=== PATIENT | male | born 1990 | race Caucasian/White ===

== ENCOUNTER 2025-02-15 12:57 | Emergency (ER) | payer MEDICAID, SELFPAY ==
[2025-02-15 13:02] VITALS: BP 185/101; PULSE 100; RESP 18; TEMP 36.7; O2SAT 99; BMI 29.3
--- NOTE | 2025-02-15 13:05 | ED_ITS ---
HPI - General Adult General Chief complaint: Wound/Laceration Stated complaint: Spider bite? L leg? Time Seen by Provider: 02/15/25 14:50 Source: patient and RN notes reviewed Mode of arrival: ambulatory Limitations: no limitations History of Present Illness ED Provider: EMMANUEL Leyva HPI narrative: 34-year-old male without medical history presents to the ED due to pain over an area of his left hip. Patient states he noticed a small area of irritation on his left hip and initially thought it was an ingrown hair. Patient states the area has gotten bigger, and pain has increased over the last 3 days. 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 Patient denies any drainage from the area, fever, chills, chest pain, shortness of breath MD complaint: Abscess to left hip Related Data Previous Rx's ?Medication ?Instructions ?Recorded cephalexin 500 mg capsule 500 mg PO BID 7 days #14 cap s 02/15/25 doxycycline hyclate 100 mg tablet 100 mg PO BID 7 days #14 tabs 02/15/25 Allergies Allergy/AdvReac Type Severity Reaction Status Date / Time No Known Allergies Allergy Verified 02/15/25 13:06 Review of Systems 2 Review of Systems: Yes all other systems are reviewed and are negative PMFSH Past Medical History Attestation statement: The following information was validated with the patient. Source: old records reviewed and nursing notes reviewed Social History Social History Smoked in Last 30 Days: No Use of substances other than those prescribed or required for medical reasons: No Advance Directives: No Advance Directives Information Provided: Yes Do you have a plan to hurt others: No Plan Physical Exam ED Vital Signs: Vital Signs - 24 hr 02/15/25 13:02 02/15/25 14:00 02/15/25 15:44 Temperature 98.1 F 97.9 F Pulse Rate 100 98 87 Respiratory Rate 18 18 18 Blood Pressure 185/101 H 131/93 H 129/79 Pulse Oximetry 99 97 97 Oxygen Delivery Method Room Air Room Air Room Air 02/15/25 16:18 Temperature 97.9 F Pulse Rate 87 Respiratory Rate 18 Blood Pressure 129/79 Pulse Oximetry 97 Oxygen Delivery Method Room Air BMI result Body Mass Index 29.3 GENERAL APPEARANCE: ?AxOx4, generally well-appearing, no acute distress. HEENT: ?NC, AT. MMM. EOMI, clear conjunctiva, oropharynx clear. NECK: ?Supple without lymphadenopathy.? No stiffness or restricted ROM. HEART:? Normal rate and regular rhythm, normal S1/S2, no m/r/g LUNGS:? CTAB, moving air well. No crackles or wheezes are heard. ABDOMEN: ?Soft, nontender, nondistended BACK: No CVAT, no obvious deformity. EXTREMITIES: ?Without cyanosis, clubbing or edema. NEUROLOGICAL: ?Grossly nonfocal. Alert and oriented, moving all 4 extremities. Observed to ambulate with normal gait. Skin: ?Warm and dry without any rash. Approximately 3 cm x 2 cm area of erythema to the left hip, this area is indurated, without drainage. Course Course Course Narrative: RME: 34 year male presents to ED for left hip pain with redness warmth after being bit in by possibly spider bite. Patient states he works in the [employer] and felt something bite him and 2 days later started having chills, subjective fever, and hip pain. On exam positive for fluctuant mass on left hip that is tender. Medications Administered Discontinued Medications Generic Name Dose Route Start Last Admin Trade Name Baltazarq PRN Reason Stop Dose Admin Doxycycline Monohydrate 200 mg 02/15/25 15:48 02/15/25 15:58 Doxycycline Monohydrate 100 Mg Capsule PO 02/15/25 15:49 200 mg ONCE ONE Administration Medical Decision Making Medical Decision Making MDM Narrative: 34-year-old male without medical history presents to the ED due to pain over an area of his left hip. Patient states he noticed a small area of irritation on his left hip and initially thought it was an ingrown hair. Patient states the area has gotten bigger, and pain has increased over the last 3 days. 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 Patient denies any drainage from the area, fever, chills, chest pain, shortness of breath VS on initial observation-BP 185/101, pulse rate of 100, respiratory rate of 18, afebrile with oral temp of 98.1?, O2 saturation 99% on room air. On re- examination BP has improved to 131/93, pulse rate of 98, respiratory rate of 18, afebrile with oral temp of 97.9?, O2 saturation 97% on room air. On physical exam there is an approximately 3 cm x 2 cm area of erythematous induration with questionable puncture rebolledo, and very faint possible bull's-eye pattern. The area has slight warmth to it, without drainage. Labs without leukocytosis/leukopenia, no evidence of anemia, ALT mildly elevated at 42, no electrolyte abnormalities. 34-year-old patient presents with painful area over the left hip, that has been getting larger, with warmth. 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 On physical exam there is an area that looks to be puncture rebolledo, with the patient working in a heavily wooded area, I am more concerned for tick- borne illnesses. Tick panel was obtained. Due to suspicion of possible tick bite, patient is being medicated with 200 mg doxycycline. Patient will be discharged with 7 day course of Keflex and doxycycline for coverage. I counseled patient that he will be called if his tick panel is positive and doxycycline we will be extended if so. I counseled patient to apply warm compresses to the area 2-3 times per day to encourage drainage if the area we will open up. Patient does not have a primary care doctor, so I counseled patient to return to the ED if he has any concerns, or if the area starts to drain, get bigger, or if he develops fevers. Patient feels well enough to go home for self-care, and is in agreement with the plan. Differential Diagnosis Differential Diagnoses: The differential diagnosis associated with the presentation includes Spider bite Cellulitis Tick bite Abscess Admission/Observation Consideration of admission/observation: Escalation of care including admission/observation considered Lab Data MDM Lab Attestation statement: I reviewed the patient's lab results. 02/15/25 14:55 02/15/25 14:55 Labs: Lab Results 02/15/25 Range/Units 14:55 WBC 9.3 (4.8-10.8) X10*3/uL RBC 5.50 (4.60-5.80) X10*6/uL Hgb 16.0 (14.0-18.0) g/dl Hct 46.7 (42.0-52.0) % MCV 84.9 (80.0-98.0) fL MCH 29.1 (27.0-33.0) pg MCHC 34.3 (31.0-36.0) g/dl RDW 12.3 (11.0-16.0) % Plt Count 331 (160-400) X10*3/uL MPV 10.0 (9.4-12.4) fL Immature Gran % (Auto) 0.3 (0.0-0.4) % Neut % (Auto) 68.7 (45-73) % Lymph % (Auto) 21.8 (20-40) % [place] % (Auto) 7.2 (2-11) % Eos % (Auto) 1.5 (0-4) % Baso % (Auto) 0.5 (0-2) % Lymph # (Auto) 2.0 (1.2-4.9) X10*3/uL [place] # (Auto) 0.7 (0.1-1.2) X10*3/uL Eos # (Auto) 0.1 (0.0-0.4) X10*3/uL Baso # (Auto) 0.1 (0.0-0.2) X10*3/uL Abs Immat Gran (auto) 0.03 (0.00-0.03) X10*3/uL Absolute Neuts (auto) 6.4 (2.0-8.3) x10*3/uL Absolute Nucleated RBC 0.000 (0.0-0.012) X10*3/uL Nucleated RBC % (auto) 0.0 (0.0-0.2) /100WBC Sodium 142 (135-145) mmol/L Potassium 3.6 (3.3-5.1) mmol/L Chloride 107 (96-108) mmol/L Carbon Dioxide 25 (22-29) mmol/L Anion Gap 14 (12-20) BUN 11 (9-16) mg/dL Creatinine 0.89 (0.5-1.4) mg/dL Estim Creat Clear Calc 137.7 Estimated GFR > 60 Random Glucose 112 (60-115) mg/dL Lactic Acid 1.4 (0.5-2.0) mmol/L Calcium 9.5 (8.4-10.2) mg/dL Total Bilirubin 0.6 (0.0-1.0) mg/dL AST 28 (5-37) U/L ALT 42 H (0-40) U/L Alkaline Phosphatase 86 (39-117) U/L Total Protein 8.4 H (6.5-8.0) g/dL Albumin 5.0 (3.5-5.0) g/dL External Record Review External record reviewed: Inpatient record, Office record and Outpatient record Chronic Conditions Patient?s care impacted by: Other (No known medical history) Discharge Plan Discharge Clinical Impression: Cellulitis Patient Disposition: Home, Self-Care Instructions: Cellulitis (ED), Warm Compress or Soak (ED) Additional Instructions: You were evaluated in the ED due to area of irritation over your left hip. There questionable puncture rebolledo over the area, with a questionable pattern of redness considerable for possible tick bite. Your blood work was reassuring today as you did not have a significant elevation or decrease in your white blood cell count indicative of infection. You were given a dose of 200 mg of doxycycline for bacterial coverage for possible tick bite. I added on a tick panel to your lab work however this will take a few days for it to results back. If so, her doxycycline will be extended. Doxycycline is a treatment for tick- borne illnesses so it will not change treatment. You are being prescribed a 7 day course of Keflex and doxycycline which are antibiotics for bacterial coverage. Please make sure you complete the entire course of medication even if your symptoms improve. Please use warm compresses 2-3 times per day over the area for 10-20 minutes at a time to encourage drainage should the area need to open. For pain management, you can take 500 mg of Tylenol and 400 mg of ibuprofen every 6 hours. Please watch for signs of the area getting larger, if the area is getting warmer, or if you start to experience pus-like drainage from the area. We are awaiting results from your tick panel, if positive we will call you and your course of doxycycline will be extended for coverage. If you do not receive a call from us the testing was negative and you do not need to be concerned. Is return to the ED if you experience fevers over 100.4?, worsening pain over the area, if the area of redness gets larger, if there is pus-like drainage from the area, or any new/worsening/concerning symptoms. Prescriptions: New cephalexin 500 mg capsule 500 mg PO BID 7 Days Qty: 14 0RF doxycycline hyclate 100 mg tablet 100 mg PO BID 7 Days Qty: 14 0RF Stand Alone Forms: Work/School Release Interventions: ED Discharge Assessment Last Done: 02/15/25 16:18 Discharge Date/Time: 02/15/25 16:35 Print Language: British
[2025-02-15 14:00] VITALS: BP 131/93; PULSE 98; RESP 18; TEMP 36.6; O2SAT 97
--- OUTSIDE RECORDS SUMMARY | 2025-02-15 14:08 | XMS_ITS | Clinical Summary ---
Author Organization [employer] Address [address] [place] [address] Care Team Providers Care Distribution Accounting Clerk Name Role Phone Unavailable Primary Care Provider Unavailabl e Social History Tobacco Use Types Packs/Day Years Used Date Smoking Tobacco: Never Assessed Sex and Gender Information Value Date Recorded Sex Assigned at Male 09/29/2024 11:37 AM EDT Legal Sex Male 11:36 AM EDT Gender Identity Male 09/29/2024 11:37 AM EDT Sexual Orientation Not on file Plan of Treatment Health Maintenance Due Date Last Done Comments Depression Screening 1990 HIV Screening 1990 Lipid Panel 1990 SDOH Screening 1990 Disability Screening 1990 Alcohol/Substance Use Screening 2002 Tobacco Screening 2002 Family Planning (PISQ) 2005 HPV Vaccines (1 - Male 3-dos e series) 2005 Hepatitis C Screening 2008 DTaP/Tdap/Td Vaccines (1 - Tdap) 2009 Hepatitis B Vaccines (1 of 3 - 19+ 3-dose series) 2009 COVID-19 Vaccine (3 - 2024-2 6 season) 2024 08/18/2020, 07/21/2020 Influenza Vaccine (#1) 2024 Zoster Vaccines (1 of 2) 2040 RSV Patients and Patients Aged 60 years or older (1 - 1-dose 75+ series) 2065 HIB Vaccines Aged Out No longer eligi ble based on patient's age to complete this topic Hepatitis A Vaccines Aged Out No long er eligible based on patient's age to complete this topic IPV Vaccines Aged Out No longer eligi ble based on patient's age to complete this topic Meningococcal B Vaccine Aged Out No l onger eligible based on patient's age to complete this topic Meningococcal Vaccine Aged Out No jose martin justina eligible based on patient's age to complete this topic Pneumococcal Vaccine: Pediatrics (0 to 5 Years) and At-Risk Patients (6 to 49) Years Aged Out No longer eligible b ased on patient's age to complete this topic RSV under 20 months Aged Out No longe r eligible based on patient's age to complete this topic Rotavirus Vaccines Aged Out No longer eligible based on patient's age to complete this topic Insurance [facility] C3
[2025-02-15 15:06] LABS: MANUAL DIFF FLAG NO
[2025-02-15 15:07] LABS: Hematocrit 46.7 % (42.0-52.0); Hemoglobin 16.0 g/dl (14.0-18.0); Imm Gran Abs Auto 0.03 X10*3/uL (0.00-0.03); Imm Gran Pct Auto 0.3 % (0.0-0.4); Lymphocytes Absolute Auto 2.0 X10*3/uL (1.2-4.9); Mean Corpuscular HGB Conc 34.3 g/dl (31.0-36.0); Mean Corpuscular Hemoglobin 29.1 pg (27.0-33.0); Mean Corpuscular Volume 84.9 fL (80.0-98.0); NRBC Abs Auto 0.000 X10*3/uL (0.0-0.012); NRBC Pct Auto 0.0 /100WBC (0.0-0.2); Platelet Count 331 X10*3/uL (160-400); Red Blood Count 5.50 X10*6/uL (4.60-5.80); White Blood Count 9.3 X10*3/uL (4.8-10.8)
[2025-02-15 15:22] LABS: Alanine Aminotransferase 42 U/L (0-40); Albumin Level 5.0 g/dL (3.5-5.0); Alkaline Phosphatase 86 U/L (39-117); Anion Gap 14 (12-20); Aspartate Amino Transferase 28 U/L (5-37); Blood Urea Nitrogen 11 mg/dL (9-16); Calcium 9.5 mg/dL (8.4-10.2); Carbon Dioxide 25 mmol/L (22-29); Chloride 107 mmol/L (96-108); Creatinine Clr Calc Pharmacy 137.7; Estimated Glomerular Filt Rate > 60; Potassium 3.6 mmol/L (3.3-5.1); Sodium 142 mmol/L (135-145); Total Protein 8.4 g/dL (6.5-8.0)
[2025-02-15 15:44] VITALS: BP 129/79; PULSE 87; RESP 18; O2SAT 97
[2025-02-15 16:18] VITALS: BP 129/79; PULSE 87; RESP 18; TEMP 36.6; O2SAT 97
[2025-02-17 05:42] LABS: A. Phagocytphilium DNA,RT-PCR NOT DETECTED (NOT DETECTED); Babesia Microti DNA, RT-PCR NOT DETECTED (NOT DETECTED); Borrelia Miyamotoi,DNA RT-PCR NOT DETECTED (NOT DETECTED); E.Chaffeensis DNA RT-PCR NOT DETECTED (NOT DETECTED); Lyme(Borrelia ssp)DNA RT-PCR NOT DETECTED (NOT DETECTED)
== END 2025-02-15 16:35 | disposition home or self-care (01) ==
PROVIDERS: Emergency Provider Emergency Medicine Emergency Medical Services
DX: L03.116 Cellulitis of left lower limb (principal); M25.552 Pain in left hip; Z79.899 Other long term (current) drug therapy
CPT/HCPCS: 36415; 80053; 83605; 85025; 87040; 87468; 87469; 87478; 87484; 87798; 99283; 99284

== ENCOUNTER 2025-02-21 12:38 | Emergency (ER) | payer MEDICAID, SELFPAY ==
[2025-02-21 12:44] VITALS: BP 128/97; PULSE 89; RESP 18; TEMP 36.8; O2SAT 95; BMI 29.3
[2025-02-21 13:00] VITALS: BP 142/96; PULSE 78; O2SAT 96
[2025-02-21] MEDS: Diphth,Pertus(ACell),Tet Adult 0.5 ML SYRINGE IM (14:12)
[2025-02-21] MEDS: Lidocaine 4 % Cream KIT 1 APPL TOPICAL (14:13)
[2025-02-21] MEDS: Morphine Sulfate Immed Release 15 MG TABLET PO (14:14)
--- NOTE | 2025-02-21 14:23 | ED_ITS ---
HPI - Skin/Abscess/Foreign Bdy General Chief complaint: Skin/Abscess/Foreign Body Stated complaint: L HIP RED SWELLING ARE X9D,SEEN FOR SAME 1W AGO Time Seen by Provider: 02/21/25 12:56 Source: patient and RN notes reviewed Mode of arrival: ambulatory Limitations: no limitations History of Present Illness ED Provider: Yris Lui PA-C HPI narrative: This is a 34-year-old male who presents emergency department with concerns of left hip redness, swelling, and pain. Patient was seen in the ED one week ago (Sunday) for what was diagnosed as an ingrown area/possible spider bite and was started on doxycycline and cephalexin. He has been fully adherent with both antibiotics and has not missed any doses. Over the past week the area has progressively worsened with increased redness and swelling, expansion in size, burning pain, and purulent drainage requiring the use of absorbent pads at work ([employer]) that he changes regularly. He denies fever, chills, chest pain, or shortness of breath. He reports mild nausea and significant localized pain to the affected side/area. No prior similar episodes. Patient has not taken any pain medication today (no ibuprofen, Tylenol, or other analgesics). No other complaints or concerns at this time. MD complaint: abscess/boil Onset (ago): day(s) Tetanus up to date: unsure Relieving factors: none Exacerbating factors: none Context: none Associated symptoms: denies other symptoms Treatments prior to arrival: none Related Data Previous Rx's ?Medication ?Instructions ?Recorded cephalexin 500 mg capsule 500 mg PO BID 7 days #14 cap s 02/15/25 doxycycline hyclate 100 mg tablet 100 mg PO BID 7 days #14 tabs 02/15/25 acetaminophen 500 mg tablet 1,000 mg (2 x 500 mg) PO Q 8H PRN 02/21/25 (Tylenol Extra Strength) pain #30 tabs cephalexin 500 mg capsule 500 mg PO QID 5 days #20 cap s 02/21/25 doxycycline hyclate 100 mg tablet 100 mg PO BID 5 days #10 tabs 02/21/25 ibuprofen 600 mg tablet 600 mg PO Q6H PRN pain #30 t abs 02/21/25 morphine 15 mg immediate release 15 mg PO Q6H PRN sadi re pain 02/21/25 tablet (scale score 7-10) #5 tabs Allergies Allergy/AdvReac Type Severity Reaction Status Date / Time No Known Allergies Allergy Verified 02/21/25 12:47 Review of Systems 2 Review of Systems: Yes all other systems are reviewed and are negative Constitutional: Constitutional: Reports as per [facility] Social History Social History Advance Directives: No Advance Directives Information Provided: Yes Do you have a plan to hurt others: No Plan Physical Exam 2 Vital Signs: Vital Signs: Last Vital Signs Temp 98.3 F 02/21/25 16:35 Pulse 89 02/21/25 16:35 Resp 18 02/21/25 16:35 BP 128/97 H 02/21/25 16:35 Pulse Ox 95 02/21/25 16:35 O2 Del Method Room Air 02/21/25 16:35 BMI result Body Mass Index 29.3 Const: General: cooperative, comfortable and no acute distress O rientation/consciousness: patient oriented x3 Limitations: no limitations HEENT: Head: Yes normal to inspection, Yes normocephalic and Yes atraumatic Ears: hearing grossly normal bilaterally General nose exam: Normal external nose present Face and sinus: Yes normal facial exam Mouth: Normal oral and palatal mucosa present, oropharynx normal and moist mucous membranes Throat: Yes posterior oropharynx normal Eyes: General: appearance normal, both eyes and all related structures E yelids: Yes eyelids normal Conjunctivae: conjunctivae normal Sclerae: s clerae normal Pupils: Equal, round and reactive pupils present EOM: EOMs intact bilaterally Neck: Neck: Yes normal visual inspection, Yes full ROM and Yes no lymphadenopathy Lymphatic: no lymphadenopathy noted Chest: Chest palpation & inspection: normal inspection of the chest Resp: Effort & Inspection: normal respiratory effort and able to speak in complete sentences Auscultation: clear to auscultation bilaterally, no crackles, no rales, no rhonchi and no wheezes Cardio: Rate: regular rate Rhythm: regular rhythm Heart sounds: S1 normal heart sound present and S2 normal heart sound present GI: Inspection: Yes normal to inspection Skin: Other: 6x6cm area of erythema, edema,warmth flu ctuance and tenderness overlying the left lateral thigh, just inferior to the left hip, tender to palpation, full ROM of the left hip without difficulty. General skin exam: no rashes or lesions noted Trauma: no lacerations or abrasions Wounds: no wounds Neuro: General: patient oriented x3 and moves all extremities Cranial nerves: Yes Equal, round and reactive pupils present Extrem: General: Yes normal to inspection Right upper extremity: normal to inspection Left upper extremity: normal to inspection Right lower extremity: normal to inspection Left lower extremity: normal to inspection Medications Administered Discontinued Medications Generic Name Dose Route Start Last Admin Trade Name Kenyatta PRN Reason Stop Dose Admin Acetaminophen 975 mg 02/21/25 14:05 02/21/25 14:14 Acetaminophen 325 Mg Tablet PO 02/21/25 14:06 975 mg ONCE ONE Administration Diphtheria/Tetanus/Acell Pertussis 0.5 ml 02/21/25 14:05 02/21/25 14:12 Diphth,Pertus(Acell),Tet Adult 0.5 Ml Syringe IM 02/21/25 14:06 0.5 ml .ONCE ONE Administration Lidocaine HCl 1 appl 02/21/25 14:05 02/21/25 14:13 Lidocaine 4 % Cream Kit TOPICAL 02/21/25 14:06 1 appl ONCE ONE Administration Protocol Lidocaine HCl 5 ml 02/21/25 15:38 02/21/25 15:50 Lidocaine Hcl 1 % Mpf 5 Ml Vial INFILTRATI 02/21/25 15:39 5 ml ONCE ONE Administration Morphine Sulfate 15 mg 02/21/25 14:05 02/21/25 14:14 Morphine Sulfate Immed Release 15 Mg Tablet PO 02/21/25 14:06 15 mg ONCE ONE Administration Medical Decision Making Medical Decision Making MDM Narrative: This is a 34-year-old male who presents emergency department with concerns of left hip redness, swelling, and pain. On arrival, pt well appearing, under no acute distress. Left lateral thigh with 6x6cm area of induration, fluctuance and erythema - consistent with abscess. Expanding, painful, draining abscess not improving on oral doxycycline + cephalexin. Needing incision & drainage. Discussed risks and benefits of I&D and patient consented for this procedure. I&D performed with 10cc of purulent drainage expressed. See procedure note. Advised to return in 48-72 hours for wound check and wick removal. Advised to continue with ABX, given extension and increased keflex to QID. Given return precautions. He understands and agrees with plan. Pt stable for d.c. Differential Diagnosis Differential Diagnoses: The differential diagnosis associated with the presentation includes abscess, celluliits, cyst, insect bite Admission/Observation Consideration of admission/observation: Escalation of care including admission/observation considered Lab Data MDM Lab Attestation statement: I reviewed the patient's lab results. Radiology Impression Discussion of test interpretation with radiology: I have reviewed the radiologist's reading. External Record Review External record reviewed: Inpatient record, Office record, Outpatient record, Prior outpatient labs, Prior outpatient radiology, Primary care record and Outside ED record Procedures Abscess I/D Site: lower extremity Side (if applicable): left Local Anesthetic: lidocaine 1% Amount of anesthesia used (mL): 4 Technique: incised with blade Amount of fluid expressed (mL): 10 Sent for culture/gram staining?: Yes Irrigation: Yes Packing used?: iodoform Discharge Plan Discharge Clinical Impression: Abscess Patient Disposition: Home, Self-Care Instructions: Abscess (ED), Abscess Follow-up (ED), Incision and Drainage (ED) Additional Instructions: You were seen in the emergency department in you were found to have an abscess. I want you to start taking Keflex (cephalexin) 4 times a day rather than twice a day. I am extending your antibiotic coverage longer as we require to incise and drain your abscess. We had placed a packing material inside the abscess to ensure that the drainage keeps draining out of this infection. If the wick comes out prior to your wound check, this is okay, and you do not need to return back if this is the case. Please return in 48-72 hours for a wound check. Please continue applying warm compresses to the area - 5-6 times per day. However if the wound becomes more painful, inflamed, in the area of redness worsens, or you develop fevers, chills, or any other concerning symptoms, please return AURELIA. morphine as a strong narcotic pain medication, please use sparingly. Please be advised that this can cause drowsiness, do not drink alcohol or drive while taking this medication. You may alternate between ibuprofen and or Tylenol as needed for pain and symptoms. Prescriptions: New cephalexin 500 mg capsule 500 mg PO QID 5 Days Qty: 20 0RF doxycycline hyclate 100 mg tablet 100 mg PO BID 5 Days Qty: 10 0RF ibuprofen 600 mg tablet 600 mg PO Q6H PRN (Reason: pain) Qty: 30 0RF acetaminophen [Tylenol Extra Strength] 500 mg tablet 1,000 mg PO Q8H PRN (Reason: pain) Qty: 30 0RF morphine 15 mg tablet 15 mg PO Q6H PRN (Reason: severe pain (scale score 7-10)) Qty: 5 0RF Rx Instructions: Partial Fill upon patient request. No Action cephalexin 500 mg capsule 500 mg PO BID 7 Days Qty: 14 0RF doxycycline hyclate 100 mg tablet 100 mg PO BID 7 Days Qty: 14 0RF Stand Alone Forms: Work/School Release Interventions: ED Discharge Assessment Last Done: 02/21/25 16:35 Discharge Date/Time: 02/21/25 16:36 Print Language: Slovenian
[2025-02-21] MEDS: Lidocaine HCl 1 % MPF 5 ML VIAL INFILTRATI (15:50)
[2025-02-21 16:35] VITALS: BP 128/97; PULSE 89; RESP 18; TEMP 36.8; O2SAT 95
== END 2025-02-21 16:36 | disposition home or self-care (01) ==
PROVIDERS: Emergency Provider Emergency Medicine
DX: L02.415 Cutaneous abscess of right lower limb (principal); Z23 Encounter for immunization
CPT/HCPCS: 10060; 87070; 87205; 90471; 90715; 99283; 99284; J2003

== ENCOUNTER 2025-02-23 17:58 | Emergency (ER) | payer MEDICAID, SELFPAY ==
[2025-02-23 18:38] VITALS: BP 150/87; PULSE 82; RESP 16; TEMP 36.4; O2SAT 97; BMI 30.7
--- NOTE | 2025-02-23 18:44 | ED.GENADULT ---
HPI - General Adult General Chief complaint: Wound/Laceration Stated complaint: Abscess packing needs to be removed Time Seen by Provider: 02/23/25 21:12 Source: patient Mode of arrival: ambulatory Limitations: no limitations History of Present Illness ED Provider: Kvng FOWLER HPI narrative: The patient is a 34-year-old male presenting to the ED reporting on Sunday he had an abscess of his left hip drained and packed. Patient returns today for removal of packing. Patient reports drainage has been mildly bloody, but no significant odor, no increasing drainage, reports surrounding erythema is improving. Patient reports compliance with his antibiotics. Related Data Previous Rx's ?Medication ?Instructions ?Recorded cephalexin 500 mg capsule 500 mg PO BID 7 days #14 caps 02/15/25 doxycycline hyclate 100 mg tablet 100 mg PO BID 7 days #14 tabs 02/15/25 acetaminophen 500 mg tablet 1,000 mg (2 x 500 mg) PO Q8H PRN 02/21/25 (Tylenol Extra Strength) pain #30 tabs cephalexin 500 mg capsule 500 mg PO QID 5 days #20 caps 02/21/25 doxycycline hyclate 100 mg tablet 100 mg PO BID 5 days #10 tabs 02/21/25 ibuprofen 600 mg tablet 600 mg PO Q6H PRN pain #30 tabs 02/21/25 morphine 15 mg immediate release 15 mg PO Q6H PRN severe pain 02/21/25 tablet (scale score 7-10) #5 tabs Allergies Allergy/AdvReac Type Severity Reaction Status Date / Time No Known Allergies Allergy Verified 02/23/25 18:41 Review of Systems Review of Systems: Yes all other systems are reviewed and are negative PMFSH Social History Social History Advance Directives: No Advance Directives Information Provided: No Physical Exam ED Vital Signs: Vital Signs - 24 hr 02/23/25 18:38 02/23/25 21:30 02/23/25 21:39 Temperature 97.6 F 98.2 F 98.2 F Pulse Rate 82 86 86 Respiratory Rate 16 20 20 Blood Pressure 150/87 H 131/85 131/85 Pulse Oximetry 97 97 97 Oxygen Delivery Method Room Air Room Air Room Air BMI result Body Mass Index 30.7 CONSTITUTIONAL: The patient appears non-toxic, well nourished and in no acute distress. Vital signs as documented. HEAD: Atraumatic, normocephalic. EYES: EOMs grossly intact, pupils equal, conjunctiva clear, no exudate. ENT: Nares patent, no discharge. Airway patent, no audible stridor, visible mucosa is pink and moist without noted lesions. NECK: trachea is midline, no obvious masses or gross abnormalities. CHEST: Symmetric movement, normal appearance. LUNGS: Non-labored work of breathing. CARDIAC: No evidence of hypoperfusion. ABDOMEN: Nondistended, no obvious injury. : Deferred. EXTREMITIES: Moves all extremities spontaneously without reported pain. No obvious injury or deformity noted. NEURO: Alert and oriented x3, CN II-XII appear grossly intact. Cerebellar Functioning grossly intact. Speech clear and appropriate. SKIN: Warm, dry, color appropriate. There is a moderate-sized area of induration noted to the left hip with packing in place, dressing demonstrates a small amount of bloody discharge. No other rashes or lesions noted. Medical Decision Making Medical Decision Making MDM Narrative: RME: 34 year old male presents to the ED for abscess check/removal replacement. Patient is abscess packing is in left buttock. Patient to be evaluated ED 9:30 PM 02/23/2025 (Ryan FOWLER): The patient is a 34-year-old male presenting to the ED reporting on Sunday he had an abscess of his left hip drained and packed. Patient returns today for removal of packing. Patient reports drainage has been mildly bloody, but no significant odor, no increasing drainage, reports surrounding erythema is improving. Patient reports compliance with his antibiotics. On exam patient has a moderate-sized area of induration noted to the left hip with packing in place, dressing demonstrates a small amount of bloody discharge. The packing was removed without complication, packing was moderately bloody with some purulent material. Following removal there was scant bleeding, a new dressing was applied. Patient was instructed to continue antibiotics until finished and continue nonocclusive dressing changes until closure of the wound. Admission/Observation Consideration of admission/observation: Escalation of care including admission/observation considered External Record Review External record reviewed: Outpatient record Discharge Plan Discharge Clinical Impression: Abscess re-check Patient Disposition: Home, Self-Care Instructions: Abscess Follow-up (ED) Additional Instructions: Thank you for choosing [facility]'s Emergency Department for your care today. At this time there is no indication for admission to the hospital or continued ED observation, and it is safe to discharge you home. Thankfully your abscess appears to be healing well, please continue changing dressings at least twice a day, please continue taking an finish your antibiotics as prescribed. You should take alternating (staggered) doses of ibuprofen 600mg and Tylenol 1000mg every 4 hours as needed for any additional pain. Please follow up with your primary care physician for re-evaluation of your wound, additional management of your symptoms, and continued preventative care. If you do not have a primary care physician, please call the [facility] at [phone] to establish a new primary care physician. While waiting to establish your new primary care physician, you can call our [facility] at [phone] for non-emergency needs. Please return to the emergency department if you develop a severe or sudden change in your symptoms, a fever over 100.4 that does not improve with Tylenol or Ibuprofen, recurrent vomiting, or any other new or worsening symptoms or concerns. Prescriptions: No Action cephalexin 500 mg capsule 500 mg PO BID 7 Days Qty: 14 0RF doxycycline hyclate 100 mg tablet 100 mg PO BID 7 Days Qty: 14 0RF cephalexin 500 mg capsule 500 mg PO QID 5 Days Qty: 20 0RF doxycycline hyclate 100 mg tablet 100 mg PO BID 5 Days Qty: 10 0RF ibuprofen 600 mg tablet 600 mg PO Q6H PRN (Reason: pain) Qty: 30 0RF acetaminophen [Tylenol Extra Strength] 500 mg tablet 1,000 mg PO Q8H PRN (Reason: pain) Qty: 30 0RF morphine 15 mg tablet 15 mg PO Q6H PRN (Reason: severe pain (scale score 7-10)) Qty: 5 0RF Rx Instructions: Partial Fill upon patient request. Interventions: ED Discharge Assessment Last Done: 02/23/25 21:39 Discharge Date/Time: 02/23/25 21:40 Print Language: Serbian
[2025-02-23 21:30] VITALS: BP 131/85; PULSE 86; RESP 20; TEMP 36.8; O2SAT 97
[2025-02-23 21:39] VITALS: BP 131/85; PULSE 86; RESP 20; TEMP 36.8; O2SAT 97
== END 2025-02-23 21:40 | disposition home or self-care (01) ==
PROVIDERS: Emergency Provider Emergency Medicine
DX: L02.416 Cutaneous abscess of left lower limb (principal); M25.552 Pain in left hip; Z79.899 Other long term (current) drug therapy
CPT/HCPCS: 99283